=== PATIENT | male | born 1970 | race Native Hawaiian/Other Pacific Islander ===

== ENCOUNTER 2021-08-01 21:48 | Emergency (ER) | payer OTHER ==
[~2021-08-01] VITALS: Ht 170.2 cm; Wt 82.6 kg
[2021-08-01 21:49] VITALS: BP 100/79; TEMP 98.9
[2021-08-01 22:31] LABS: PLATELET COUNT 114 K/uL (142-355)
[2021-08-01 22:38] LABS: POTASSIUM 4.3 mmol/L (3.6-5.2)
[2021-08-01] MEDS ORDERED: CITALOPRAM40 MG PO (23:55)
[2021-08-01] MEDS ORDERED: DIVALPROEX500 MG PO (23:56)
[2021-08-01] MEDS ORDERED: FERROUS SULF325 MG PO (23:57)
[2021-08-02] MEDS ORDERED: OMEPRAZOLE DR40 MG PO (00:02)
[2021-08-02] MEDS ORDERED: QUETIAPINE400 MG PO (00:04)
[2021-08-02] MEDS ORDERED: QUETIAPINE50 MG PO (00:07)
[2021-08-02] MEDS ORDERED: CRESTOR20 MG PO (00:08)
[2021-08-02] MEDS ORDERED: TRAZ50TA36 PO (00:09)
[2021-08-02] MEDS ORDERED: TAMS0.4C PO (00:09)
[2021-08-02] MEDS ORDERED: ASCO500T18 PO (00:10)
[2021-08-02] MEDS ORDERED: D 10001000 UNIT PO (00:11)
== END 2021-08-01 22:52 | disposition still patient (30) ==
LOC: ED 21:48
PROVIDERS: Hospitalist
DX: F25.8 Other schizoaffective disorders (principal); Q90.9 Down syndrome, unspecified; N39.0 Urinary tract infection, site not specified; Z11.52 Encounter for screening for COVID-19; Z04.6 Encounter for general psychiatric examination, requested by authority
CPT/HCPCS: 36415; 80053; 81002; 81015; 85027; 87086; 87088; 87635; 93005; 99283; J0696; U0003

== ENCOUNTER 2021-08-21 20:45 | Inpatient (IN) | payer OTHER ==
[~2021-08-21] VITALS: Ht 170.2 cm; Wt 87.2 kg
[~2021-08-21 20:45] MED LIST: ASCO500T18 PO; CITALOPRAM40 MG PO; CRESTOR20 MG PO; D 10001000 UNIT PO; DIVALPROEX500 MG PO; FERROUS SULF325 MG PO; OMEPRAZOLE DR40 MG PO; QUETIAPINE400 MG PO; QUETIAPINE50 MG PO; TAMS0.4C PO; TRAZ50TA36 PO
[2021-08-21 23:16] VITALS: BP 70/39
[2021-08-22 00:24] VITALS: BP 58/38
[2021-08-22 01:14] LABS: POTASSIUM 3.8 mmol/L (3.6-5.2)
[2021-08-22 01:16] VITALS: BP 67/36
[2021-08-22 01:20] LABS: PLATELET COUNT 51 K/uL (142-355)
[2021-08-22 01:27] VITALS: BP 68/39; TEMP 87.1; Ht 170.2 cm; Wt 87.2 kg
[2021-08-22 02:15] VITALS: BP 71/30
== END 2021-08-22 05:25 | disposition short-term general hospital (02) | DRG 871 ==
LOC: MED/SURG 20:45
PROVIDERS: ADMIT Internal Medicine; ATTEND Internal Medicine
PROC: 30233N1 Transfusion of Nonautologous Red Blood Cells into Peripheral Vein, Percutaneous Approach (ICD-10-PCS; principal; 2021-08-22)
PROC: 5A1935Z Respiratory Ventilation, Less than 24 Consecutive Hours (ICD-10-PCS; 2021-08-22)
PROC: 0BH17EZ Insertion of Endotracheal Airway into Trachea, Via Natural or Artificial Opening (ICD-10-PCS; 2021-08-22)
DX: A41.89 Other specified sepsis (principal); J96.00 Acute respiratory failure, unspecified whether with hypoxia or hypercapnia; K92.2 Gastrointestinal hemorrhage, unspecified; D62 Acute posthemorrhagic anemia; N39.0 Urinary tract infection, site not specified; E87.2 Acidosis; F02.81 Dementia in other diseases classified elsewhere, unspecified severity, with behavioral disturbance; G40.802 Other epilepsy, not intractable, without status epilepticus; I95.89 Other hypotension; R68.0 Hypothermia, not associated with low environmental temperature; G30.8 Other Alzheimer's disease; F32.9 Major depressive disorder, single episode, unspecified; Q90.9 Down syndrome, unspecified; N40.0 Benign prostatic hyperplasia without lower urinary tract symptoms; K58.9 Irritable bowel syndrome, unspecified; K21.9 Gastro-esophageal reflux disease without esophagitis; M62.81 Muscle weakness (generalized); R13.11 Dysphagia, oral phase
CPT/HCPCS: 36415; 36600; 80048; 81002; 82805; 83605; 84484; 85008; 85027; 86850; 86900; 86901; 86922; 87635; 93005; 94660; J0171; J0696; J3490; P9016; U0003